=== PATIENT | female | born 1960 | race African-American/Black ===

== ENCOUNTER 2019-06-18 18:06 | Emergency (ER) | payer SELFPAY ==
[~2019-06-18] VITALS: Ht 162.6 cm; Wt 62.1 kg
--- NOTE | 2019-06-18 18:12 | NUR ---
ED Nurse Note: PT NOT FOUND IN THE WAITING ROOM.
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
--- NOTE | 2019-06-18 18:29 | NUR ---
David - brother: [phone]
[2019-06-18 18:32] VITALS: BP 155/94
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
--- NOTE | 2019-06-18 19:05 | NUR ---
ED Nurse Note: Report received from FRANKLYN Welch.
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
[2019-06-18] MEDS ORDERED: ROBAXIN-750750 MG PO (19:43)
[2019-06-18] MEDS ORDERED: ACETAMINOPHEN500 M3 ORAL (19:43)
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
[2019-06-18 19:55] VITALS: BP 155/94
--- NOTE | 2019-06-18 19:55 | NUR ---
ER DISCHARGE NOTE: Patient is cleared to be discharged per ERMD, pt is aox4, on room air, with stable vital signs. pt was given dc and prescription instructions, pt was able to verbalize understanding, pt id band removed. pt is able to ambulate with steady gait. pt took all belongings.
== END 2019-06-18 19:55 | disposition home or self-care (01) ==
LOC: EMR 18:33
DX: S00.511A Abrasion of lip, initial encounter (principal); S00.91XA Abrasion of unspecified part of head, initial encounter; S16.1XXA Strain of muscle, fascia and tendon at neck level, initial encounter; Y04.2XXA Assault by strike against or bumped into by another person, initial encounter; Y93.9 Activity, unspecified; Y92.9 Unspecified place or not applicable; Z88.5 Allergy status to narcotic agent; Z88.8 Allergy status to other drugs, medicaments and biological substances
CPT/HCPCS: 70450; 70486; 72125; 99284